=== PATIENT | female | born 1935 | race Caucasian/White ===

== ENCOUNTER 2019-03-15 16:16 | Emergency (ER) | payer MEDICARE ==
[2019-03-15 16:49] VITALS: BP 184/75; PULSE 66
--- NOTE | 2019-03-15 18:16 | EDM.PDOC ---
<Didier Tineo - Last Filed: 03/15/19 18:10> ED HPI GENERAL MEDICAL PROBLEM - General Chief Complaint: Lower Extremity Injury/Pain Stated Complaint: R KNEE PAIN Time Seen by Provider: 03/15/19 17:56 Source of Information: Reports: Patient History Limitations: Reports: No Limitations - History of Present Illness INITIAL COMMENTS - FREE TEXT/NARRATIVE: Pt is an 83yo female who presents to ED today with complaint of right knee pain. Pt was stepping down a step out of her house today when she felt a pain and tearing sensation in her right knee. She did not fall or twist her knee. She did not hear any popping or crunching sounds. She rested for a while after the injury, but when she got up to ambulate, the pain was still there. She states that the knee does not hurt at rest, only with activity. She feels the right knee may be slightly more swollen than the left knee. Pt is not on any blood thinners. 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 Onset: Today, Sudden Location: Reports: Lower Extremity, Right Right Leg Pain Score (Numeric/FACES): 8 - Related Data Allergies Allergy/AdvReac Type Severity Reaction Status Date / Time codeine Allergy Other Verified 03/17/19 15:18 Penicillins Allergy Other Verified 03/17/19 15:18 Home Meds: Home Meds Aspirin 81 mg PO DAILY 03/15/19 [History] Cholecalciferol (Vitamin D3) [Vitamin D3] 1,000 unit PO DAILY 03/15/19 [History] Glimepiride [Amaryl] 2 mg PO WITHBREAKFAST 03/15/19 [History] Levothyroxine 0.025 mg PO DAILY 03/15/19 [History] Losartan/Hydrochlorothiazide [Losartan-HCTZ 100-25 MG] 1 each PO DAILY 03/15/19 [History] Omeprazole 40 mg PO DAILY 03/15/19 [History] amLODIPine [Norvasc] 2.5 mg PO DAILY 03/15/19 [History] metFORMIN [Glucophage] 850 mg PO QAM 03/15/19 [History] Acetaminophen/oxyCODONE [Percocet 325-5 MG] 1 each PO Q6H PRN #10 tab 03/17/19 [ Rx] Ondansetron [Zofran ODT] 4 mg PO Q8H PRN #10 tab.dis 03/17/19 [Rx] Past Medical History HEENT History: Reports: Cataract, Impaired Vision Cardiovascular History: Reports: Hypertension Gastrointestinal History: Reports: GERD 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: Endocrine/Metabolic History: Reports: Diabetes, Type II, Hypothyroidism - Past Surgical History HEENT Surgical History: Reports: Cataract Surgery, Oral Surgery, Tonsillectomy Social & Family History - Family History Family Medical History: Noncontributory - Tobacco Use Smoking Status *Q: Never Smoker Second Hand Smoke Exposure: No - Caffeine Use Caffeine Use: Reports: Coffee - Recreational Drug Use Recreational Drug Use: No Review of Systems - Review of Systems Review Of Systems: See Below Constitutional: Reports: No Symptoms Eyes: Reports: No Symptoms Ears: Reports: No Symptoms Nose: Reports: No Symptoms Mouth/Throat: Reports: No Symptoms Respiratory: Reports: No Symptoms Cardiovascular: Reports: No Symptoms GI/Abdominal: Reports: No Symptoms Genitourinary: Reports: No Symptoms 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: Reports: Leg Pain (Right knee) Skin: Reports: No Symptoms Neurological: Reports: No Symptoms Psychiatric: Reports: No Symptoms ED EXAM, GENERAL - Physical Exam Exam: See Below Exam Limited By: No Limitations General Appearance: Alert, No Apparent Distress Eye Exam: Bilateral Eye: Normal Inspection Ears: Normal External Exam, Hearing Grossly Normal Nose: Normal Inspection, No Blood Throat/Mouth: Normal Inspection Head: Atraumatic, Normocephalic Neck: Normal Inspection Respiratory/Chest: No Respiratory Distress, Lungs Clear, Normal Breath Sounds, No Accessory Muscle Use Cardiovascular: Regular Rate, Rhythm, No Edema, No Murmur, No Rub GI/Abdominal: Normal Bowel Sounds, Soft, Non-Tender, No Organomegaly, No Distention, No Mass (Female) Exam: Deferred Rectal (Female) Exam: Deferred Back Exam: Normal Inspection Extremities: Normal Inspection, No Pedal Edema, Leg Pain, Limited Range of Motion. No: Joint Swelling, Increased Warmth, Redness Neurological: Alert, Oriented, Normal Cognition Psychiatric: Normal Affect, Normal Mood Skin Exam: Warm, Dry, Intact, Normal Color Course - Vital Signs Last Recorded V/S: Last Vital Signs Temp 99.0 F 03/15/19 16:45 Pulse 66 03/15/19 16:45 Resp 18 03/15/19 16:45 BP 184/75 H 03/15/19 16:45 Pulse Ox 96 03/15/19 16:45 Departure - Departure Disposition: Home, Self-Care 01 Clinical Impression: Right knee sprain - Discharge Information Instructions: Knee Sprain, Adult Referrals: Vaughn Haynes MD [Primary Care Provider] - Forms: ED Department Discharge Additional Instructions: Sameer wrap right knee, ice packs and elevation if needed for swelling, no 2-3 times daily as needed for discomfort, is walker for now until knee discomfort resolving, Dr. Parikh Monday as planned. <Mor Shaffer - Last Filed: 03/19/19 15:42> Course - Re-Assessments/Exams Free Text/Narrative Re-Assessment/Exam: 03/19/19 15:41 Initial Hx and exam was done by Daniel Villalba, 3rd yr medical student. I also examined patient and took a hx from patient. I agree with Daniel Lam's hx and exam as documented. X ray shows some degenerative changes but no fx. Discharge instr. as documented. Departure - Departure Time of Disposition: 19:15 Condition: Fair
--- NOTE | 2019-03-16 08:26 | CR ---
Right knee: Four views of the right knee were obtained. Slight lateral joint space narrowing is seen. Slight osteophytes are noted off the medial and lateral joint. Chondrocalcinosis is noted within the menisci. No joint effusion is seen. Osteopenia is present. Nothing acute is seen. Impression: 1. Mild degenerative change and chondrocalcinosis. 2. Osteopenia. Diagnostic code #2
== END 2019-03-15 19:28 | disposition home or self-care (01) ==
LOC: JD.ED 16:16
DX: S83.91XA Sprain of unspecified site of right knee, initial encounter (principal); E11.9 Type 2 diabetes mellitus without complications; I10 Essential (primary) hypertension; K21.9 Gastro-esophageal reflux disease without esophagitis; E03.9 Hypothyroidism, unspecified; Z79.82 Long term (current) use of aspirin; Z79.899 Other long term (current) drug therapy; Z88.5 Allergy status to narcotic agent; Z88.0 Allergy status to penicillin; W22.8XXA Striking against or struck by other objects, initial encounter; Y92.009 Unspecified place in unspecified non-institutional (private) residence as the place of occurrence of the external cause
CPT/HCPCS: 73564-26-RT; 73564-RT; 99282; 99283-25

== ENCOUNTER 2019-03-17 13:41 | Emergency (ER) | payer MEDICARE ==
[2019-03-17 15:06] VITALS: BP 156/49; PULSE 64
[2019-03-17] MEDS ORDERED: HYDROmorphone 0.5 MG/0.5 ML Syringe IM ONE (15:23)
--- NOTE | 2019-03-17 15:24 | EDM.PDOC ---
ED HPI GENERAL MEDICAL PROBLEM - General Chief Complaint: Lower Extremity Injury/Pain Stated Complaint: RIGHT KNEE PAIN Time Seen by Provider: 03/17/19 14:57 Source of Information: Reports: Patient, RN Notes Reviewed History Limitations: Reports: No Limitations - History of Present Illness INITIAL COMMENTS - FREE TEXT/NARRATIVE: Patient is an 83-year-old female who presents to the ED for evaluation of right knee pain. The patient was seen in this ER by Dr. Shaffer few days ago for the initial injury. She states that she has been wrapping the knee, and icing it and elevating it as previously directed. She has been using Aleve for pain management. She states that none of this is really helping the pain. She states that the pain has worsened since the initial injury. She states that any certain movement bothers the knee, and it hurts to bear weight on the knee. There is a mild amount of swelling noted to the right knee. She would rate her pain at a 10 out of 10 today. She denies any numbness or tingling distal to the injury. Right Knee Pain Score (Numeric/FACES): 10 - Related Data Allergies Allergy/AdvReac Type Severity Reaction Status Date / Time codeine Allergy Other Verified 03/17/19 15:18 Penicillins Allergy Other Verified 03/17/19 15:18 Home Meds: Home Meds Aspirin 81 mg PO DAILY 03/15/19 [History] Cholecalciferol (Vitamin D3) [Vitamin D3] 1,000 unit PO DAILY 03/15/19 [History] Glimepiride [Amaryl] 2 mg PO WITHBREAKFAST 03/15/19 [History] Levothyroxine 0.025 mg PO DAILY 03/15/19 [History] Losartan/Hydrochlorothiazide [Losartan-HCTZ 100-25 MG] 1 each PO DAILY 03/15/19 [History] Omeprazole 40 mg PO DAILY 03/15/19 [History] amLODIPine [Norvasc] 2.5 mg PO DAILY 03/15/19 [History] metFORMIN [Glucophage] 850 mg PO QAM 03/15/19 [History] Acetaminophen/oxyCODONE [Percocet 325-5 MG] 1 each PO Q6H PRN #10 tab 03/17/19 [ Rx] Ondansetron [Zofran ODT] 4 mg PO Q8H PRN #10 tab.dis 03/17/19 [Rx] Past Medical History HEENT History: Reports: Cataract, Impaired Vision Cardiovascular History: Reports: Hypertension Gastrointestinal History: Reports: GERD 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: 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 History: Reports: None Neurological History: Reports: None Psychiatric History: Reports: None Endocrine/Metabolic History: Reports: Diabetes, Type II, Hypothyroidism Hematologic History: Reports: None Dermatologic History: Reports: None - Past Surgical History HEENT Surgical History: Reports: Cataract Surgery, Oral Surgery, Tonsillectomy Social & Family History - Family History Family Medical History: Noncontributory - Caffeine Use Caffeine Use: Reports: Coffee Review of Systems - Review of Systems Review Of Systems: See Below Constitutional: Reports: No Symptoms Eyes: Reports: No Symptoms Ears: Reports: No Symptoms Nose: Reports: No Symptoms Mouth/Throat: Reports: No Symptoms Respiratory: Reports: No Symptoms Cardiovascular: Reports: No Symptoms GI/Abdominal: Reports: No Symptoms Genitourinary: Reports: No Symptoms 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: Reports: Joint Pain (R knee), Joint Swelling (R knee). Denies : Leg Pain Skin: Reports: No Symptoms Neurological: Reports: No Symptoms Psychiatric: Reports: No Symptoms ED EXAM, GENERAL - Physical Exam Exam: See Below Exam Limited By: No Limitations General Appearance: Alert, WD/WN, No Apparent Distress Throat/Mouth: Normal Inspection, Normal Lips, Normal Teeth, Normal Gums, Normal Oropharynx, Normal Voice, No Airway Compromise Head: Atraumatic, Normocephalic Respiratory/Chest: No Respiratory Distress, Lungs Clear, Normal Breath Sounds, No Accessory Muscle Use, Chest Non-Tender Cardiovascular: Normal Peripheral Pulses, Regular Rate, Rhythm, No Murmur Peripheral Pulses: 3+: Dorsalis Pedis (L), Dorsalis Pedis (R) Extremities: Normal Inspection, Normal Capillary Refill, Joint Swelling (to R knee), Limited Range of Motion (of right lower leg d/t pain in R knee), Other ( knee is tender to light palpation of joint). No: Increased Warmth Neurological: Alert, Oriented, Normal Cognition, No Motor/Sensory Deficits Psychiatric: Normal Affect, Normal Mood Skin Exam: Warm, Dry, Intact, Normal Color, No Rash Course - Vital Signs Last Recorded V/S: Last Vital Signs Temp 97.3 F 03/17/19 15:04 Pulse 64 03/17/19 15:04 Resp 18 03/17/19 15:04 BP 156/49 H 03/17/19 15:04 Pulse Ox 97 03/17/19 15:04 - Orders/Labs/Meds Meds: Medications Discontinued Medications Generic Name Dose Route Start Last Admin Trade Name Asya PRN Reason Stop Dose Admin Hydromorphone HCl 0.5 mg 03/17/19 15:23 03/17/19 15:32 Dilaudid IM 03/17/19 15:24 0.5 mg ONETIME ONE Administration Ketorolac Tromethamine 10 mg 03/17/19 18:19 Toradol PO 03/17/19 18:20 ONETIME ONE Oxycodone/Acetaminophen 1 tab 03/17/19 16:51 03/17/19 17:37 Percocet 325-5 Mg PO 03/17/19 16:52 1 tab ONETIME ONE Administration - Re-Assessments/Exams Free Text/Narrative Re-Assessment/Exam: 03/17/19 15:44 Patient presents to the ED for evaluation of lingering knee pain. I have ordered 0.5 mg of IM Dilaudid for initial management. I did discuss with her the likelihood of a traumatic effusion due to the injury itself, and with the swelling present. The patient states that she sees her primary care provider tomorrow, and she got a previous injection on the left knee and this seemed to help the pain in her left knee. I did tell her to talk with her primary care provider regarding this possibility. We will likely send the patient home with some pain medication so she can get around her house. 03/17/19 18:45 Patient did not receive much relief 0.5 mg IM Dilaudid, I did give her 1 5/325 Percocet, and she was able to get a little bit relief from this. I will provide her with one tablet to take home and a few tablets for the next couple days until she can be evaluated by Dr. Fajardo tomorrow, with an alternative plan for pain management. Departure - Departure Time of Disposition: 18:50 Disposition: Home, Self-Care 01 Condition: Fair Clinical Impression: Right knee pain Qualifiers: Chronicity: acute Qualified Code(s): M25.561 - Pain in right knee - Discharge Information *PRESCRIPTION DRUG MONITORING PROGRAM REVIEWED*: No *COPY OF PRESCRIPTION DRUG MONITORING REPORT IN PATIENT JADE: No Instructions: Joint Pain, [id number] Referrals: Vaughn Haynes MD [Primary Care Provider] - Forms: ED Department Discharge Additional Instructions: You have been evaluated in the ED for your continuing Right knee pain. Please use ice as tolerated to the affected area. Please try to elevate the affected area to relieve swelling. You may take Tylenol 500 mg or q6 hrs for pain relief. Please do so until you have a tolerable level of pain with activity. Do not exceed 4000mg Tylenol in a 24 hour time period. You have given a prescription for Percocet which is oxycodone and acetaminophen, 5/325 for pain relief not provided by Tylenol alone. Please take one tab every 6 hours as needed for further pain relief. These pain medications can be addictive, recommend to take as few as possible to get adequate pain control. You were also given a few tablets of an antinausea medication called Zofran, that you may take while using the Percocet. Any sort of opioid pain medication can be somewhat constipating, recommend you start taking MiraLAX or a stool softener if you're not already doing so to help guard against constipation. Recommend that you follow up with Dr. Beltran gave her tomorrow in clinic regarding further pain management. Please return to ED if your symptoms should change or worsen.
[2019-03-17] MEDS ORDERED: Acetaminophen/oxyCODONE 325-5 MG Tab PO ONE ×2 (16:51→18:46)
[2019-03-17] MEDS ORDERED: Ketorolac 10 MG Tab PO ONE (18:19)
[2019-03-17] MEDS ORDERED: Ondansetron 4 MG Tab.DIS PO ONE (18:46)
== END 2019-03-17 19:19 | disposition home or self-care (01) ==
LOC: JD.ED 13:41
DX: M25.561 Pain in right knee (principal); I10 Essential (primary) hypertension; E11.9 Type 2 diabetes mellitus without complications; E03.9 Hypothyroidism, unspecified; K21.9 Gastro-esophageal reflux disease without esophagitis; Z79.82 Long term (current) use of aspirin; Z79.84 Long term (current) use of oral hypoglycemic drugs; Z79.899 Other long term (current) drug therapy; Z79.890 Hormone replacement therapy; Z88.0 Allergy status to penicillin; Z88.5 Allergy status to narcotic agent
CPT/HCPCS: 96372; 99283; A9270; J1170

== ENCOUNTER 2020-02-15 08:03 | Emergency (ER) | payer MEDICARE ==
[2020-02-15] MEDS ORDERED: Sodium Chloride 0.9% 10 ML Syringe FLUSH PRN (08:09)
[2020-02-15 08:19] VITALS: BP 131/78
[2020-02-15] MEDS ORDERED: Metoprolol Tartrate 5 MG/5 ML SDV IVPUSH ONE (08:20)
--- NOTE | 2020-02-15 09:02 | EDM.PDOC ---
ED HPI GENERAL MEDICAL PROBLEM - General Chief Complaint: Chest Pain Stated Complaint: [facility] Time Seen by Provider: 02/15/20 08:08 Source of Information: Reports: Patient, RN Notes Reviewed - History of Present Illness INITIAL COMMENTS - FREE TEXT/NARRATIVE: 84 yr old female that had onset of mild chest discomfort upon awakening this morning about 90 minutes ago. Described as a mild ache and also aware of mild palpitations. No cough, fever or difficulty breathing. No known hx a fib. Chest pain gone at time of my exam. No abd pain, nausea or vomiting. Upper Back Pain Score (Numeric/FACES): 4 - Related Data Allergies Allergy/AdvReac Type Severity Reaction Status Date / Time codeine Allergy Severe Abdominal Verified 02/15/20 08:21 Pain Penicillins Allergy Hives Verified 02/15/20 08:21 Home Meds: Home Meds Aspirin 81 mg PO DAILY 03/15/19 [History] Cholecalciferol (Vitamin D3) [Vitamin D3] 1,000 unit PO DAILY 03/15/19 [History] Glimepiride [Amaryl] 2 mg PO WITHBREAKFAST 03/15/19 [History] Levothyroxine 0.025 mg PO DAILY 03/15/19 [History] Losartan/Hydrochlorothiazide [Losartan-HCTZ 100-25 MG] 1 each PO DAILY 03/15/19 [History] Omeprazole 40 mg PO DAILY 03/15/19 [History] amLODIPine [Norvasc] 2.5 mg PO DAILY 03/15/19 [History] metFORMIN [Glucophage] 850 mg PO QAM 03/15/19 [History] Acetaminophen/oxyCODONE [Percocet 325-5 MG] 1 each PO Q6H PRN #10 tab 03/17/19 [Rx] Ondansetron [Zofran ODT] 4 mg PO Q8H PRN #10 tab.dis 03/17/19 [Rx] Past Medical History HEENT History: Reports: Cataract, Impaired Vision Cardiovascular History: Reports: Hypertension Gastrointestinal History: Reports: GERD 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: 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 History: Reports: None Neurological History: Reports: None Psychiatric History: Reports: None Endocrine/Metabolic History: Reports: Diabetes, Type II, Hypothyroidism Hematologic History: Reports: None Dermatologic History: Reports: None - Infectious Disease History Infectious Disease History: Reports: Chicken Pox, Measles, Pertussis (Whooping Cough) - Past Surgical History HEENT Surgical History: Reports: Cataract Surgery, Oral Surgery, Tonsillectomy Social & Family History - Family History Family Medical History: Noncontributory - Tobacco Use Smoking Status *Q: Never Smoker - Caffeine Use Caffeine Use: Reports: Coffee - Recreational Drug Use Recreational Drug Use: No ED ROS GENERAL - Review of Systems Review Of Systems: See Below Constitutional: Denies: Fever, Chills, Diaphoresis HEENT: Denies: Throat Pain Respiratory: Denies: Shortness of Breath, Cough Cardiovascular: Reports: Chest Pain GI/Abdominal: Denies: Abdominal Pain, Nausea, Vomiting 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: Reports: Back Pain (mild, gone). Denies: Shoulder Pain, Arm Pain Neurological: Reports: Dizziness (mild, gone). Denies: Numbness, Tingling, Trouble Speaking ED EXAM, GENERAL - Physical Exam Exam: See Below General Appearance: Alert, No Apparent Distress Eye Exam: Bilateral Eye: PERRL Head: Atraumatic Neck: Supple Respiratory/Chest: No Respiratory Distress, Lungs Clear, Normal Breath Sounds Cardiovascular: Irregularly Irregular GI/Abdominal: Soft, Non-Tender Extremities: Normal Inspection, Normal Range of Motion. No: Leg Pain, Increased Warmth, Redness Neurological: Alert, Oriented, No Motor/Sensory Deficits Skin Exam: Warm, Dry, Normal Color EKG INTERPRETATION EKG Date: 02/15/20 Rhythm: A-Fib Rate (Beats/Min): 123 Mart: Normal P-Wave: Present QRS: Other (q waves lead III) ST-T: Normal Course - Vital Signs Last Recorded V/S: Last Vital Signs Temp 97.0 F 02/15/20 08:08 Pulse 92 02/15/20 08:08 Resp 20 02/15/20 08:08 BP 131/78 02/15/20 08:08 Pulse Ox 95 02/15/20 08:08 - Orders/Labs/Meds Orders: Active Orders 24 hr Category Date Time Status EKG 12 Lead [EKG Documentation Completion] [RC] STAT Care 02/15/20 08:09 Active EKG 12 Lead [EKG Documentation Completion] [RC] STAT Care 02/15/20 10:08 Active Peripheral IV Care [RC] . DIRECTED Care 02/15/20 08:09 Active Sodium Chloride 0.9% [Saline Flush] Med 02/15/20 08:09 Active 10 ml FLUSH ASDIRECTED PRN Peripheral IV Insertion Adult [OM.PC] Stat Oth 02/15/20 08:09 Ordered Medication Orders Sodium Chloride (Saline Flush) 10 ml FLUSH ASDIRECTED PRN PRN Reason: Keep Vein Open Labs: Laboratory Tests 02/15/20 02/15/20 02/15/20 Range/Units 08:20 08:20 08:20 WBC 4.54 (3.98-10.04) K/mm3 RBC 4.78 (3.98-5.22) M/mm3 Hgb 13.0 (11.2-15.7) gm/dl Hct 41.8 (34.1-44.9) % MCV 87.4 (79.4-94.8) fl MCH 27.2 (25.6-32.2) pg MCHC 31.1 L (32.2-35.5) g/dl RDW Std Deviation 43.0 (36.4-46.3) fL Plt Count 283 (182-369) K/mm3 MPV 9.9 (9.4-12.3) fl Neut % (Auto) 58.4 (34.0-71.1) % Lymph % (Auto) 29.1 (19.3-51.7) % [place] % (Auto) 10.6 (4.7-12.5) % Eos % (Auto) 1.3 (0.7-5.8) Baso % (Auto) 0.4 (0.1-1.2) % Neut # (Auto) 2.65 (1.56-6.13) K/mm3 Lymph # (Auto) 1.32 (1.18-3.74) K/mm3 [place] # (Auto) 0.48 H (0.24-0.36) K/mm3 Eos # (Auto) 0.06 (0.04-0.36) K/mm3 Baso # (Auto) 0.02 (0.01-0.08) K/mm3 Sodium 141 (136-145) mEq/L Potassium 3.3 L (3.5-5.1) mEq/L Chloride 100 (98-107) mEq/L Carbon Dioxide 32 (21-32) mEq/L Anion Gap 12.3 (5-15) BUN 15 (7-18) mg/dL Creatinine 1.1 H (0.55-1.02) mg/dL Est Cr Clr Drug Dosing 32.29 mL/min Estimated GFR (MDRD) 47 (>60) mL/min BUN/Creatinine Ratio 13.6 L (14-18) Glucose 195 H (83-115) mg/dL Calcium 9.1 (8.5-10.1) mg/dL Total Bilirubin 0.7 (0.2-1.0) mg/dL AST 16 (15-37) U/L ALT 23 (14-59) U/L Alkaline Phosphatase 93 (46-116) U/L Troponin I < 0.017 (0.00-0.056) ng/mL NT-Pro-B Natriuret Pep 264 (0-450) pg/mL Total Protein 6.8 (6.4-8.2) g/dl Albumin 3.3 L (3.4-5.0) g/dl Globulin 3.5 gm/dL Albumin/Globulin Ratio 0.9 L (1-2) Meds: Medications Generic Name Dose Route Start Last Admin Trade Name Freq PRN Reason Stop Dose Admin Sodium Chloride 10 ml 02/15/20 08:09 Saline Flush FLUSH ASDIRECTED PRN Keep Vein Open Discontinued Medications Generic Name Dose Route Start Last Admin Trade Name Freq PRN Reason Stop Dose Admin Metoprolol Tartrate 5 mg 02/15/20 08:20 02/15/20 10:12 Lopressor IVPUSH 02/15/20 08:21 Not Given ONETIME ONE - Re-Assessments/Exams Free Text/Narrative Re-Assessment/Exam: 02/15/20 09:03. Pt converted to NSR about a half hr ago before ordered lopressor given. She is resting comfortably, repeat EKG show NSR, rate 84, no acute changes. Labs still pending, CXR looks good. Departure - Departure Time of Disposition: 10:27 Disposition: Home, Self-Care 01 Condition: Fair Clinical Impression: Atrial fibrillation Qualifiers: Atrial fibrillation type: unspecified Qualified Code(s): I48.91 - Unspecified atrial fibrillation Instructions: Atrial Fibrillation, [id number] Referrals: Sj Miller MD [Primary Care Provider] - Forms: ED Department Discharge Additional Instructions: Your heart was in what we call atrial fibrillation when you first came to the ED but it went back to it's normal heart rythm shortly after I saw you and has remained in normal rythm since that time. Continue your current medications. See your regular provider in about 5 to 10 days, call for appt. Monday AM. Return to ED as needed, especially for pain or palpitations and discomfort that lasts longer than 15 minutes. Sepsis Event Note (ED) - Evaluation Sepsis Screening Result: No Definite Risk - Focused Exam Vital Signs: Vital Signs Temp Pulse Resp BP Pulse Ox 02/15/20 08:08 97.0 F 92 20 131/78 95 - My Orders Last 24 Hours: My Active Orders 02/15/20 08:09 EKG 12 Lead [EKG Documentation Completion] [RC] STAT Peripheral IV Care [RC] . DIRECTED Sodium Chloride 0.9% [Saline Flush] 10 ml FLUSH ASDIRECTED PRN Peripheral IV Insertion Adult [OM.PC] Stat 02/15/20 10:08 EKG 12 Lead [EKG Documentation Completion] [RC] STAT - Assessment/Plan Last 24 Hours: My Active Orders 02/15/20 08:09 EKG 12 Lead [EKG Documentation Completion] [RC] STAT Peripheral IV Care [RC] . DIRECTED Sodium Chloride 0.9% [Saline Flush] 10 ml FLUSH ASDIRECTED PRN Peripheral IV Insertion Adult [OM.PC] Stat 02/15/20 10:08 EKG 12 Lead [EKG Documentation Completion] [RC] STAT
--- NOTE | 2020-02-15 09:08 | CR ---
Chest: Portable view of the chest was obtained. Comparison: No prior chest imaging is available. Heart size and mediastinum are normal. Lungs are clear with no acute parenchymal change. Bony structures are grossly intact. Impression: 1. Nothing acute is appreciated on portable chest x-ray. Diagnostic code #1 This report was dictated in MDT
[2020-02-15 10:53] VITALS: PULSE 70
== END 2020-02-15 10:49 | disposition home or self-care (01) ==
LOC: JD.ED 08:03
DX: I48.91 Unspecified atrial fibrillation (principal); I10 Essential (primary) hypertension; E11.9 Type 2 diabetes mellitus without complications; K21.9 Gastro-esophageal reflux disease without esophagitis; E03.9 Hypothyroidism, unspecified; Z90.49 Acquired absence of other specified parts of digestive tract; Z88.5 Allergy status to narcotic agent; Z88.0 Allergy status to penicillin; Z79.82 Long term (current) use of aspirin; Z79.899 Other long term (current) drug therapy
CPT/HCPCS: 36415; 71045; 71045-26; 80053; 83880; 84484; 85025; 93005; 93010; 99284; 99285-25

== ENCOUNTER 2021-07-31 05:10 | Emergency (ER) | payer MEDICARE ==
[2021-07-31] MEDS ORDERED: Acetaminophen/HYDROcodone 325-5 MG Tab PO ONE (05:34)
[2021-07-31 05:38] VITALS: BP 165/65; PULSE 61
== END 2021-07-31 07:50 | disposition home or self-care (01) ==
LOC: JD.ED 05:10
DX: S83.91XA Sprain of unspecified site of right knee, initial encounter (principal); I10 Essential (primary) hypertension; K21.9 Gastro-esophageal reflux disease without esophagitis; E11.9 Type 2 diabetes mellitus without complications; E03.9 Hypothyroidism, unspecified; Z79.82 Long term (current) use of aspirin; Z79.84 Long term (current) use of oral hypoglycemic drugs; Z79.899 Other long term (current) drug therapy; Z88.8 Allergy status to other drugs, medicaments and biological substances; Z88.0 Allergy status to penicillin; W18.30XA Fall on same level, unspecified, initial encounter
CPT/HCPCS: 73502; 73562; 99283; A9270

== ENCOUNTER 2022-07-03 09:27 | Emergency (ER) | payer MEDICARE ==
[2022-07-03 10:03] VITALS: BP 139/51; PULSE 51
[2022-07-03] MEDS ORDERED: valACYclovir 500 MG Tab PO ONE (11:33)
== END 2022-07-03 12:05 | disposition home or self-care (01) ==
LOC: JD.ED 09:27
DX: B02.9 Zoster without complications (principal); I10 Essential (primary) hypertension; K21.9 Gastro-esophageal reflux disease without esophagitis; E11.9 Type 2 diabetes mellitus without complications; E03.9 Hypothyroidism, unspecified; Z88.0 Allergy status to penicillin; Z88.5 Allergy status to narcotic agent; Z79.899 Other long term (current) drug therapy; Z79.4 Long term (current) use of insulin; Z86.16 Personal history of COVID-19
CPT/HCPCS: 36415; 73030; 80053; 85025; 99283; A9270